=== PATIENT | male | born 1950 | race Caucasian/White ===

== ENCOUNTER → 2020-08-21 08:55 | Outpatient (BNVA) | payer MEDICARE, OTHER, SELFPAY | PROVIDERS: PCP Family Medicine; Visit Provider Orthopaedic Surgery | DX: M20.012 Mallet finger of left finger(s) (principal) | CPT/HCPCS: 99202 ==

== ENCOUNTER → 2020-09-18 08:45 | Outpatient (BNVA) | payer MEDICARE, OTHER, SELFPAY | PROVIDERS: Visit Provider Orthopaedic Surgery | DX: M20.012 Mallet finger of left finger(s) (principal) | CPT/HCPCS: 99212 ==

== ENCOUNTER → 2020-10-22 08:53 | Outpatient (BNVA) | payer MEDICARE, OTHER, SELFPAY | PROVIDERS: Visit Provider Orthopaedic Surgery | DX: M20.012 Mallet finger of left finger(s) (principal) | CPT/HCPCS: 99212 ==